=== PATIENT | female | born 1980 | race Caucasian/White ===

== ENCOUNTER 2017-04-07 06:55 | Emergency (ER) | payer OTHER ==
--- NOTE | 2017-04-07 07:43 | ED CLINICAL REPORT ---
Clinical Report - Physicians/Mid Levels [facility] [address] [place] [address] 04/07/2017 6:58 Patient: LALA ANDREWS Time Seen: 0725. Arrived- By private vehicle. Historian- patient. HISTORY OF PRESENT ILLNESS Location of injuries- right foot. Chief Complaint: UNKNOWN INSECT STING. The injury occurred today. The appearance of the animal is unknown. The animal was not captured. Occurred at home. The patient has had itching. No dizziness or difficulty breathing. She has not had swelling, drainage or trouble swallowing. 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 REVIEW OF SYSTEMS No difficulty breathing, chest pain, nausea, fever or abdominal pain. All systems otherwise negative, except as recorded above. PAST HISTORY See nurses notes. Tetanus immunization status is up-to-date. Medications: None. Allergies: No Known Drug Allergy. SOCIAL HISTORY Smoker- current status unknown. No alcohol use or drug use. Is a local resident. ADDITIONAL NOTES The nursing notes have been reviewed. PHYSICAL EXAM Vital Signs: 04/07/2017 07:19 BP: 126/80. HR: 95. RR: 16. O2 saturation: 100%. Temp: 97.7 F. Pain level now: 3/10. Blood pressure normal. Oxygen saturation normal. Appearance: Alert. Oriented X3. No acute distress. CVS: Heart sounds normal. Pulses normal. Respiratory: Chest normal on inspection. Breath sounds normal. Chest nontender. Abdomen: Normal inspection. Soft and nontender. Bowel sounds normal. Skin: Skin intact. Skin warm and dry. Normal skin color. Normal skin turgor. (except for small 1 cm bulla to the left foot just over the first MTP joint. No FB, erythema, crepitus, or patricia abnormality. clear fluid under skin.). Extremities: Normal inspection. Pelvis stable. Extremities atraumatic. No lower extremity edema. Neuro: Granger Coma Scale: 15- eyes open spontaneously (4); best verbal response- oriented x 3 (5); best motor response- obeys commands (6). Oriented X 3. No motor deficit. No sensory deficit. (normal gait). CLINICAL IMPRESSION Single unknown insect sting to the right foot. INSTRUCTIONS Warnings: GENERAL WARNINGS: Return or contact your physician immediately if your condition worsens or changes unexpectedly, if not improving as expected, or if other problems arise. Specifically return if pain, vomiting, bleeding, breathing difficulty or fever. increasing redness or swelling. Your Current Medications: CONTINUE TAKING THE FOLLOWING MEDICATIONS: None*. Prescription Medications: Hydroxyzine 50 mg: take 1 orally every 8 hours as needed for itching, anxiety or sleep. Dispense thirty (30). No refill. Follow-up: Return to the emergency department as needed. Follow up with your doctor in five days. Reason for referral: recheck today's concerns. Summary of care provided to patient via paper. Screening today revealed the patient's blood pressure to be in the normal range. The patient should follow up with a primary care provider for blood pressure management. Understanding of the discharge instructions verbalized by patient. (Electronically signed by Nahun Carrero Dr. 04/07/2017 8:02)
--- NOTE | 2017-04-07 07:43 | ED CLINICAL REPORT ---
Clinical Report - Physicians/Mid Levels [facility] [address] [place] [address] 04/07/2017 6:58 Patient: LALA ANDREWS Time Seen: 0725. Arrived- By private vehicle. Historian- patient. HISTORY OF PRESENT ILLNESS Location of injuries- right foot. Chief Complaint: UNKNOWN INSECT STING. The injury occurred today. The appearance of the animal is unknown. The animal was not captured. Occurred at home. The patient has had itching. No dizziness or difficulty breathing. She has not had swelling, drainage or trouble swallowing. 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 REVIEW OF SYSTEMS No difficulty breathing, chest pain, nausea, fever or abdominal pain. All systems otherwise negative, except as recorded above. PAST HISTORY See nurses notes. Tetanus immunization status is up-to-date. Medications: None. Allergies: No Known Drug Allergy. SOCIAL HISTORY Smoker- current status unknown. No alcohol use or drug use. Is a local resident. ADDITIONAL NOTES The nursing notes have been reviewed. PHYSICAL EXAM Vital Signs: 04/07/2017 07:19 BP: 126/80. HR: 95. RR: 16. O2 saturation: 100%. Temp: 97.7 F. Pain level now: 3/10. Blood pressure normal. Oxygen saturation normal. Appearance: Alert. Oriented X3. No acute distress. CVS: Heart sounds normal. Pulses normal. Respiratory: Chest normal on inspection. Breath sounds normal. Chest nontender. Abdomen: Normal inspection. Soft and nontender. Bowel sounds normal. Skin: Skin intact. Skin warm and dry. Normal skin color. Normal skin turgor. (except for small 1 cm bulla to the left foot just over the first MTP joint. No FB, erythema, crepitus, or patricia abnormality. clear fluid under skin.). Extremities: Normal inspection. Pelvis stable. Extremities atraumatic. No lower extremity edema. Neuro: Rattan Coma Scale: 15- eyes open spontaneously (4); best verbal response- oriented x 3 (5); best motor response- obeys commands (6). Oriented X 3. No motor deficit. No sensory deficit. (normal gait). CLINICAL IMPRESSION Single unknown insect sting to the right foot. INSTRUCTIONS Warnings: GENERAL WARNINGS: Return or contact your physician immediately if your condition worsens or changes unexpectedly, if not improving as expected, or if other problems arise. Specifically return if pain, vomiting, bleeding, breathing difficulty or fever. increasing redness or swelling. Your Current Medications: CONTINUE TAKING THE FOLLOWING MEDICATIONS: None*. Prescription Medications: Hydroxyzine 50 mg: take 1 orally every 8 hours as needed for itching, anxiety or sleep. Dispense thirty (30). No refill. Follow-up: Return to the emergency department as needed. Follow up with your doctor in five days. Reason for referral: recheck today's concerns. Summary of care provided to patient via paper. Screening today revealed the patient's blood pressure to be in the normal range. The patient should follow up with a primary care provider for blood pressure management. Understanding of the discharge instructions verbalized by patient. (Electronically signed by Nahun Carrero Dr. 04/07/2017 8:02)
--- NOTE | 2017-04-07 07:43 | ED NURSING NOTES ---
Clinical Report - Nurses [facility] [address] [place] [address] 04/07/2017 6:58 Patient: LALA ANDREWS TRIAGE Triage time 07:19. Chief Complaint: RIGHT LOWER EXTREMITY PAIN and REDNESS. SEPSIS SCREEN: Sepsis Screen. Negative (no infection suspected/documented). --07:30 Kaila Henning R.N. 07:19 04/07/17. BP: 126/80 taken on the right arm, manually, while sitting. HR: 95. RR: 16. O2 saturation: 100%. Temp: 97.7 F. Pain level now: 12/16. --07:30 Kaila Henning R.N. Weight: 52.1 kg stated. Height/Length: 65 inches Per Patient. BMI: 19.1. --07:30 Kaila Henning R.N. Medications None. --07:22 Kaila Henning R.N. Medication/allergy information source: the patient. --07:30 Kaila Henning R.N. Allergies No Known Drug Allergy. --07:22 Kaila Henning R.N. History Historian: patient. Primary physician (no pcp). ( Right foot pain. States she was bitten by a spider the night before last. Woke up yesterday with a blister just below her big toe on the top of her right foot.). No injury occurred. This occurred at an unknown time. It is described as radiating to the right lower extremity and foot. She has had trouble walking. 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 PAST MEDICAL HX: Tetanus status: up-to-date. Last normal menstrual period unknown. ( states she could possibly be ). SOCIAL HX: Heavy tobacco smoker- 1 pack per day. No alcohol use or drug use. No infectious disease exposure. SELF HARM ASSESSMENT: A self harm assessment was performed. The patient answered "no" to the question "Do you have thoughts of harming or killing yourself?". ABUSE ASSESSMENT: Abuse assessment: (Yes) The patient was asked "Do you feel safe in your home?". --07:30 Kaila Henning R.N. PROBLEMS: Abscess. Depression. Anxiety Reaction. --07:23 Kaila Henning R.N. Interventions ID band on patient. To room. --07:30 Kaila Henning R.N. PHYSICAL ASSESSMENT Ambulatory to room. GENERAL / NEURO / PSYCH: Oriented X 4. Alert. Appears in no acute distress. EXTREMITIES: Right foot. ( blister). SKIN: Skin intact. Skin is warm and dry. --07:31 Kaila Henning R.N. NURSING PROGRESS NOTES Reassurance given. Patient identifiers checked. Call light placed in reach. Bed placed in lowest position. Patient ready for evaluation. --07:31 Kaila Henning R.N. DISPOSITION / DISCHARGE Departure time: 755. Condition at departure: unchanged and stable. No learning barriers present. Discharge instructions provided and reviewed with the patient. Reviewed medication(s). Patient verbalized understanding. Written instructions provided in Swedish. The patient was discharged by the physician. She was discharged home. She left the Emergency Department ambulatory and via private vehicle. Patient driving. --07:57 Robbie Garcia R.N. 07:54 04/07/17. BP: 120/78. HR: 96. RR: 16. O2 saturation: 99%. Temp: 98.6 F. Pain level now: 02/15. --17:57 Kaila Henning R.N. Locked/Released at 04/07/2017 17:57 by Kaila Henning R.N.
--- NOTE | 2017-04-07 07:43 | ED NURSING NOTES ---
Clinical Report - Nurses [facility] [address] [place] [address] 04/07/2017 6:58 Patient: LALA ANDREWS TRIAGE Triage time 07:19. Chief Complaint: RIGHT LOWER EXTREMITY PAIN and REDNESS. SEPSIS SCREEN: Sepsis Screen. Negative (no infection suspected/documented). --07:30 Kaila Henning R.N. 07:19 04/07/17. BP: 126/80 taken on the right arm, manually, while sitting. HR: 95. RR: 16. O2 saturation: 100%. Temp: 97.7 F. Pain level now: 12/16. --07:30 Kaila Henning R.N. Weight: 52.1 kg stated. Height/Length: 65 inches Per Patient. BMI: 19.1. --07:30 Kaila Henning R.N. Medications None. --07:22 Kaila Henning R.N. Medication/allergy information source: the patient. --07:30 Kaila Henning R.N. Allergies No Known Drug Allergy. --07:22 Kaila Henning R.N. History Historian: patient. Primary physician (no pcp). ( Right foot pain. States she was bitten by a spider the night before last. Woke up yesterday with a blister just below her big toe on the top of her right foot.). No injury occurred. This occurred at an unknown time. It is described as radiating to the right lower extremity and foot. She has had trouble walking. 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 PAST MEDICAL HX: Tetanus status: up-to-date. Last normal menstrual period unknown. ( states she could possibly be ). SOCIAL HX: Heavy tobacco smoker- 1 pack per day. No alcohol use or drug use. No infectious disease exposure. SELF HARM ASSESSMENT: A self harm assessment was performed. The patient answered "no" to the question "Do you have thoughts of harming or killing yourself?". ABUSE ASSESSMENT: Abuse assessment: (Yes) The patient was asked "Do you feel safe in your home?". --07:30 Kaila Henning R.N. PROBLEMS: Abscess. Depression. Anxiety Reaction. --07:23 Kaila Henning R.N. Interventions ID band on patient. To room. --07:30 Kaila Henning R.N. PHYSICAL ASSESSMENT Ambulatory to room. GENERAL / NEURO / PSYCH: Oriented X 4. Alert. Appears in no acute distress. EXTREMITIES: Right foot. ( blister). SKIN: Skin intact. Skin is warm and dry. --07:31 Kaila Henning R.N. NURSING PROGRESS NOTES Reassurance given. Patient identifiers checked. Call light placed in reach. Bed placed in lowest position. Patient ready for evaluation. --07:31 Kaila Henning R.N. DISPOSITION / DISCHARGE Departure time: 755. Condition at departure: unchanged and stable. No learning barriers present. Discharge instructions provided and reviewed with the patient. Reviewed medication(s). Patient verbalized understanding. Written instructions provided in Tajik. The patient was discharged by the physician. She was discharged home. She left the Emergency Department ambulatory and via private vehicle. Patient driving. --07:57 Robbie Garcia R.N. 07:54 04/07/17. BP: 120/78. HR: 96. RR: 16. O2 saturation: 99%. Temp: 98.6 F. Pain level now: 02/15. --17:57 Kaila Henning R.N. Locked/Released at 04/07/2017 17:57 by Kaila Henning R.N.
--- NOTE | 2017-04-07 17:57 | ED MAR SUMMARY ---
..... Medication Administration Record [facility] [address] [place], [place] [id number] Patient: LALA ANDREWS Visit ID: [id number] 37y, F Weight: 52.1 kg Height/Length: 65 in BMI: 19.1 ALLERGIES: No Known Drug Allergy
--- NOTE | 2017-04-07 17:57 | ED MED RECONCILIATION SUMMARY ---
Patient: LALA ANDREWS Medication Reconciliation Report [facility] VisitID: [id number] [address] [place] [address] 37y, F Registration Date/Time: 04/07/2017 Weight: 52.1 kg Height/Length: 65 in. BMI: 19.1 ALLERGIES: No Known Drug Allergy The patient's Home Medications are listed below: NONE. The source(s) of the original Home Medication information: patient The following Medications were given to the patient in the Emergency Department: None. The following Medications were prescribed to the patient: Hydroxyzine 50 mg: take 1 orally every 8 hours as needed for itching, anxiety or sleep. Dispense thirty (30). No refill. -- aNhun Carrero Dr.
--- NOTE | 2017-04-07 17:57 | ED DISCHARGE INSTRUCTIONS ---
Patient: LALA ANDREWS General Instructions [facility] VisitID: [id number] [place] [address] 37y, F Registration Date/Time: 04/07/2017 Single unknown insect sting to the right foot. INSTRUCTIONS Warnings: GENERAL WARNINGS: Return or contact your physician immediately if your condition worsens or changes unexpectedly, if not improving as expected, or if other problems arise. Specifically return if pain, vomiting, bleeding, breathing difficulty or fever. increasing redness or swelling. Your Current Medications: CONTINUE TAKING THE FOLLOWING MEDICATIONS: None*. Prescription Medications: Hydroxyzine 50 mg: take 1 orally every 8 hours as needed for itching, anxiety or sleep. Dispense thirty (30). No refill. Follow-up: Return to the emergency department as needed. Follow up with your doctor in five days. Reason for referral: recheck today's concerns. Summary of care provided to patient via paper. Screening today revealed the patient's blood pressure to be in the normal range. The patient should follow up with a primary care provider for blood pressure management. Understanding of the discharge instructions verbalized by patient. ADDITIONAL INFORMATION Insect Sting Allergy,Generalized You are having an allergic reaction to an insect sting. This may occur after a sting by a wasp, honeybee, yellow jacket or other insect. This may cause an itchy rash and swelling in the face or other parts of the body. A more severe reaction may cause you to feel dizzy or faint or have trouble breathing or swallowing. Insect stings may also become infected 1-3 days later, so watch for the warning signs below. Home Care: Avoid tight clothing and things that heat up your skin (such as hot showers or baths, or direct sunlight). Heat makes the itching worse. An ice pack (ice cubes in a plastic bag, wrapped in a towel) will relieve local areas of intense itching and redness. Lanacaine cream or Solarcaine spray (or other product containing "benzocaine") will reduce the itching. Oral Benadryl (diphenhydramine) is an antihistamine available at drug and grocery stores. Unless a prescription antihistamine was given, Benadryl may be used to reduce itching if large areas of the skin are involved. Use lower doses during the daytime and higher doses at bedtime since the drug may make you sleepy. [NOTE: Do not use Benadryl if you have glaucoma or if you are a man with trouble urinating due to an enlarged prostate.] Claritin (loratadine) is an antihistamine that causes less drowsiness and is a good alternative for daytime use. You may use acetaminophen (Tylenol) or ibuprofen (Motrin, Advil) to control pain, unless another pain medicine was prescribed. [NOTE: If you have chronic liver or kidney disease or ever had a stomach ulcer or GI bleeding, talk with your doctor before using these medicines.] Preventing Future Reactions: Future reactions could be worse than this one, so try to avoid situations where you might be stung again. Be aware that honeybees nest in trees. Wasps and yellow jackets nest in the ground, trees or roof eaves. If you are stung by a honeybee a stinger will remain in your skin. Wasps, yellow jackets, hornets do not leave a stinger behind. In either case, move away from the nest area immediately to avoid more stings. (The stinger of a honeybee releases a substance that will attract other bees to you.) After you are safely away from the nest, remove the stinger as quickly as possible, by scraping it out with the edge of a dull knife or plastic card (credit card). Do not use a tweezer or your fingers, since that may squeeze more toxin from the stinger. After any sting, you may apply ice and take Benadryl or other antihistamine. If you develop any of the warning signs below, seek help immediately. If you are at high risk for another sting due to where you work or play, or if your reaction included dizziness, fainting or trouble breathing or swallowing, an Insect Allergy Kit or Epi-Pen may be prescribed. If not, ask your doctor for one and carry it with you when you are in a risk area. Learn how to use the device. If you begin to feel the symptoms of another reaction in the future, use the Epi-Pen to inject yourself, and then call 911. Don't wait until symptoms become severe. Follow Up with your doctor or this facility in the next two days if your symptoms do not continue to improve. Get Prompt Medical Attention if any of the following occur: Spreading areas of itching, redness or swelling New or worse swelling in the face, eyelids, lips, mouth, throat or tongue Trouble swallowing or breathing Dizziness, weakness or fainting Headache, fever, chills, muscle or joint aching, vomiting, Increased pain or swelling Fever of 100.4F (38C) or higher, or as directed by your healthcare provider Colored fluid draining from the wound Hydroxyzine Pamoate Oral capsule What is this medicine? HYDROXYZINE (clement DROX i zeen) is an antihistamine. This medicine is used to treat allergy symptoms. It is also used to treat anxiety and tension. This medicine can be used with other medicines to induce sleep before surgery. How should I use this medicine? Take this medicine by mouth with a full glass of water. Follow the directions on the prescription label. You may take this medicine with food or on an empty stomach. Take your medicine at regular intervals. Do not take your medicine more often than directed. Talk to your band lining bander regarding the use of this medicine in children. Special care may be needed. While this drug may be prescribed for children as young as 6 years of age for selected conditions, precautions do apply. Patients over 65 years old may have a stronger reaction and need a smaller dose. What side effects may I notice from receiving this medicine? Side effects that you should report to your doctor or health rn transitional care as soon as possible: fast or irregular heartbeat difficulty passing urine seizures slurred speech or confusion tremor Side effects that usually do not require medical attention (report to your doctor or health rn transitional care if they continue or are bothersome): constipation drowsiness fatigue headache stomach upset What may interact with this medicine? alcohol barbiturate medicines for sleep or seizures medicines for colds, allergies medicines for depression, anxiety, or emotional disturbances medicines for pain medicines for sleep muscle relaxants What if I miss a dose? If you miss a dose, take it as soon as you can. If it is almost time for your next dose, take only that dose. Do not take double or extra doses. Where should I keep my medicine? Keep out of the reach of children. Store at room temperature between 15 and 30 degrees C (59 and 86 degrees F). Keep container tightly closed. Throw away any unused medicine after the expiration date. What should I tell my health care provider before I take this medicine? They need to know if you have any of these conditions: any chronic illness difficulty passing urine glaucoma heart disease kidney disease liver disease lung disease an unusual or allergic reaction to hydroxyzine, cetirizine, other medicines, foods, dyes, or preservatives or trying to get breast-feeding What should I watch for while using this medicine? Tell your doctor or health rn transitional care if your symptoms do not improve. You may get drowsy or dizzy. Do not drive, use machinery, or do anything that needs mental alertness until you know how this medicine affects you. Do not stand or sit up quickly, especially if you are an older patient. This reduces the risk of dizzy or fainting spells. Alcohol may interfere with the effect of this medicine. Avoid alcoholic drinks. Your mouth may get dry. Chewing sugarless gum or sucking hard candy, and drinking plenty of water may help. Contact your doctor if the problem does not go away or is severe. This medicine may cause dry eyes and blurred vision. If you wear contact lenses you may feel some discomfort. Lubricating drops may help. See your eye doctor if the problem does not go away or is severe. If you are receiving skin tests for allergies, tell your doctor you are using this medicine. You have been given the following additional information: Allergic Reaction, Insect (General) Hydroxyzine Pamoate Oral capsule (Electronically signed by Nahun Carrero Dr. 04/07/2017 8:02)
--- NOTE | 2017-04-07 17:57 | ED MAR SUMMARY ---
..... Medication Administration Record [facility] [address] [place], [place] [id number] Patient: LALA ANDREWS Visit ID: [id number] 37y, F Weight: 52.1 kg Height/Length: 65 in BMI: 19.1 ALLERGIES: No Known Drug Allergy
--- NOTE | 2017-04-07 17:57 | ED MED RECONCILIATION SUMMARY ---
Patient: LALA ANDREWS Medication Reconciliation Report [facility] VisitID: [id number] [address] [place] [address] 37y, F Registration Date/Time: 04/07/2017 Weight: 52.1 kg Height/Length: 65 in. BMI: 19.1 ALLERGIES: No Known Drug Allergy The patient's Home Medications are listed below: NONE. The source(s) of the original Home Medication information: patient The following Medications were given to the patient in the Emergency Department: None. The following Medications were prescribed to the patient: Hydroxyzine 50 mg: take 1 orally every 8 hours as needed for itching, anxiety or sleep. Dispense thirty (30). No refill. -- Nahun Carrero Dr.
== END 2017-04-07 07:56 | disposition home or self-care (01) ==
LOC: ED SRH 06:55
DX: T63.391A Toxic effect of venom of other spider, accidental (unintentional), initial encounter (principal)